=== PATIENT | male | born 2000 | race Caucasian/White ===

== ENCOUNTER 2020-01-06 04:53 | Emergency (ER) | payer BC, OTHER ==
[~2020-01-06] VITALS: Ht 175.2 cm; Wt 95.0 kg
--- NOTE | 2020-01-06 05:16 | ED Upper Extremity ---
General Chief Complaint: Upper Extremity Stated Complaint: RT WRIST INJURY Nursing Triage Note: Patient states that he was wrestling with a friend when they both fell. When they fell, his friend landed on his right wrist. Patient complains of pain on the outside of his right wrist. There is no swelling, deformities or bruising noted. Patient rates his pain at a 7. History of Present Illness Date Seen by Provider: Jan 06, 2020 Time Seen by Provider: 05:15 Initial Comments As patient is a 19-year-old male that presents to the emergency department after suffering a wrist injury trying to catch a friend from falling. Patient complains of lateral right wrist pain. No obvious signs of injury and no swelling. Patient is requesting an x-ray. Onset: just prior to arrival Pain/Injury Location: right wrist Method of Injury: fell Allergies and Home Medications Allergies Coded Allergies: No Known Drug Allergies (Unverified , 01/06/20) Patient Home Medication List Home Medication List Reviewed: Yes Review of Systems Constitutional: no symptoms reported; No see HPI, No chills, No diaphoresis, No dizziness, No fever, No malaise, No weakness, No weight gain, No weight loss, No other EENTM: no symptoms reported; No see HPI, No ear discharge, No hearing loss, No ear pain, No blurred vision, No double vision, No eye pain, No tearing, No vision loss, No dental problems, No hoarseness, No mouth pain, No mouth swelling, No epistaxis, No nose congestion, No nose pain, No throat pain, No throat swelling, No other Respiratory: no symptoms reported; No see HPI, No cough, No dyspnea on exertion, No hemoptysis, No orthopnea, No phlegm, No short of breath, No stridor, No wheezing, No other Cardiovascular: no symptoms reported; No see HPI, No chest pain, No edema, No Hx of Intervention, No palpitations, No syncope, No vascular heart diseas, No other Gastrointestinal: No RUQ, No LUQ, No RLQ, No LLQ; no symptoms reported; No see HPI, No abdominal pain, No constipation, No diarrhea, No dysphagia, No hematemesis, No heartburn, No jaundice, No loss of appetite, No melena, No nausea, No vomiting, No other Genitourinary: no symptoms reported; No see HPI, No decreased output, No discharge, No dysuria, No frequency, No hematuria, No hesitancy, No incontinence, No nocturia, No pain, No other Musculoskeletal: No no symptoms reported, No see HPI, No back pain, No gout; joint pain; No joint swelling, No muscle pain, No muscle stiffness, No muscle cramps, No muscle twitching, No muscle weakness, No neck pain, No other Skin: no symptoms reported; No see HPI, No change in color, No change in hair/nails, No dryness, No hx of skin cancer, No lesions, No lumps, No pruritus, No rash, No other Past Fqepbov-Petiov-Qancld Hx Patient Social History Recent Foreign Travel: No Contact w/Someone Who Travel: No Recent Infectious Disease Expo: No Ebola Symptoms: Denies Symptoms Listed Physical Abuse: No Sexual Abuse: No Mistreated: No Fear: No Physical Exam Vital Signs Vital Signs - First Documented 01/06/20 04:59 Temp 37.1 Pulse 106 Resp 18 B/P (MAP) 133/60 Pulse Ox 97 O2 Delivery Room Air Capillary Refill : Height, Weight, BMI Height: '" Weight: lbs. oz. kg; 30.00 BMI Method: General Appearance: WD/WN, no apparent distress HEENT: PERRL/EOMI, normal ENT inspection, TMs normal, pharynx normal Neck: non-tender, full range of motion, supple, normal inspection Cardiovascular: normal peripheral pulses, regular rate, rhythm, no edema, no gallop, no JVD, no murmur Wrist: Yes normal inspection, Yes no evidence of injury, Yes limited ROM Progress/Results/Core Measures Results/Orders My Orders Orders - SHARIFA PAINTER MD Wrist 3 View Right (01/06/20 05:13) Vital Signs/I&O 01/06/20 04:59 Temp 37.1 Pulse 106 Resp 18 B/P (MAP) 133/60 Pulse Ox 97 O2 Delivery Room Air Diagnostic Imaging Diagonstic Imaging: Xray Plain Films/CT/US/NM/MRI: other (wrist) Comments Normal x-ray no signs of injury Reviewed: Reviewed by Me Departure Impression Primary Impression: Wrist sprain Disposition: 01 HOME, SELF-CARE Condition: Stable Departure-Patient Inst. Decision time for Depature: 05:33 Referrals: NO,LOCAL PHYSICIAN (PCP) Primary Care Physician Patient Instructions: Common Wrist Injuries (DC) Add. Discharge Instructions: Rest ice elevation compression with Akil wrap as needed. May use Velcro wrist splint if needed. Follow-up your PCP in 2-3 days All discharge instructions reviewed with patient and/or family. Voiced understanding. SHARIFA PAINTER MD Jan 06, 2020 05:16
--- NOTE | 2020-01-06 05:35 | NUR ---
Patient was offered a splint per doctors recommendation and patient declined.
--- NOTE | 2020-01-06 08:26 | Diagnostic Imaging Report ---
Indication: Right wrist injury with pain and swelling. Comparison: None. Discussion: Three views of the right wrist were obtained. There is a very small minimally displaced fracture involving the ulnar aspect of the hamate which is intra-articular involving the articulation with the 5th metacarpal. No other fracture or dislocation identified. No foreign body. Mild soft tissue swelling. Impression: 1. Small minimally displaced fracture involving the ulnar aspect of the hamate. Dictated by: Dictated on workstation # [id number]
== END 2020-01-06 06:11 | disposition home or self-care (01) ==
LOC: ER FS 04:58
DX: S63.501A Unspecified sprain of right wrist, initial encounter (principal); W03.XXXA Other fall on same level due to collision with another person, initial encounter; Y93.72 Activity, wrestling
CPT/HCPCS: 73110